=== PATIENT | male | born 1945 | race Caucasian/White ===

== ENCOUNTER 2019-04-25 09:25 | Day surgery (SDC) | payer MEDICARE, BC ==
[~2019-04-25 09:25] MED LIST: Glycopyrrolate 0.2 MG/ML SDV ONE; Lactated Ringers 1,000 ML IV SCH; Lidocaine 2% 5 ML SDV ONE; Midazolam 1 MG/ML 2 ML SDV ONE; Propofol 200 MG/20 ML SDV ONE; Sodium Chloride 0.9% 10 ML SDV IV PRN; Sodium Chloride 0.9% 10 ML Syringe FLUSH PRN; Sodium Chloride 0.9% 2.5 ML Syringe FLUSH PRN
--- NOTE | 2019-04-25 10:36 | PCM.PREANE ---
Preanesthetic Assessment - Anesthesia/Transfusion/Family Hx Anesthesia History: Prior Anesthesia Without Reaction Other Type of Anesthesia Reaction Comment: was slow to wake up after EGD Family History of Anesthesia Reaction: No Transfusion History: No Prior Transfusion(s) Intubation History: Unknown - Review of Systems General: No Symptoms Pulmonary: No Symptoms Cardiovascular: No Symptoms Gastrointestinal: Other (changes in bowel habits and 'black stools') Neurological: No Symptoms Other: Reports: None - Physical Assessment Height: 5 ft 6 in Weight: 67.132 kg Thyro-Mental Finger Breadths: 3 Mouth Opening Finger Breadths: 3 ROM/Head Extension: Full Lungs: Clear to Auscultation, Normal Respiratory Effort Cardiovascular: Regular Rate, Regular Rhythm - Lab Values: Laboratory Last Values POC Glucose 124 mg/dL (60-110) H 04/25/19 10:04 - Allergies Allergies/Adverse Reactions: Allergies Allergy/AdvReac Type Severity Reaction Status Date / Time No Known Allergies Allergy Verified 04/19/19 16:57 - Blood Blood Available: No - Anesthesia Plan Pre-Op Medication Ordered: None - Acknowledgements Anesthesia Type Planned: MAC Pt an Appropriate Candidate for the Planned Anesthesia: Yes Alternatives and Risks of Anesthesia Discussed w Pt/Guardian: Yes Pt/Guardian Understands and Agrees with Anesthesia Plan: Yes PreAnesthesia Questionnaire HEENT History: Reports: Cataract, Hard of Hearing Other HEENT History: wears glasses, has bilateral heariing aides Cardiovascular History: Reports: CAD, High Cholesterol, Hypertension, Stents ( x3 removed during tripple CABG 5 years ago) Respiratory History: Reports: Other (See Below) Other Respiratory History: was told by one doctor that he had COPD, was told after that that he did not- no inhalers Gastrointestinal History: Reports: GERD, Hiatal Hernia Musculoskeletal History: Reports: Arthritis, Gout Neurological History: Psychiatric History: Reports: Anxiety, Depression Endocrine/Metabolic History: Reports: Diabetes, Type II Hematologic History: Reports: Anemia Immunologic History: Reports: Other (See Below) Other Immunologic History: hx of West Nile Virus Oncologic (Cancer) History: Reports: Lymphoma Other Oncologic History: 10 years ago, received Chemotherapy - now ok Dermatologic History: Reports: Other (See Below) Other Dermatologic History: "scaley patches" on his head - Past Surgical History Head Surgeries/Procedures: Reports: None Cardiovascular Surgical History: Reports: Coronary Artery Bypass Other Cardiovascular Surgeries/Procedures: had cardiac stent placement prior to CABG GI Surgical History: Reports: Colonoscopy (5 years ago), EGD (with dilatation 4- 5 years ago) - SUBSTANCE USE Smoking Status *Q: Former Smoker (quit 18-20 years ago) Tobacco Use Within Last Twelve Months: No Recreational Drug Use History: No - HOME MEDS Home Medications: Home Meds Aspirin 81 mg PO BRK 11/20/14 [History] Enalapril Maleate 10 mg PO BID 11/20/14 [History] FLUoxetine HCl [Fluoxetine HCl] 80 mg PO DAILY 11/20/14 [History] Metoprolol Succinate [Toprol XL] 100 mg PO DAILY 11/20/14 [History] Omeprazole 20 mg PO BIDAC 11/20/14 [History] Rosuvastatin [Crestor] 40 mg PO DAILY 11/20/14 [History] Tamsulosin [Tamsulosin 24 Hr] 0.4 mg PO DAILY 11/20/14 [History] Venlafaxine [Effexor XR 24 Hr] 75 mg PO DAILY 11/20/14 [History] amLODIPine Besylate [Amlodipine Besylate] 10 mg PO DAILY 11/20/14 [History] metFORMIN [Glucophage] 500 mg PO BIDMEALS 11/20/14 [History] traZODone 100 mg PO BEDTIME PRN 11/20/14 [History] Ascorbate Calcium [Vitamin C] 500 mg PO DAILY 04/19/19 [History] Ferrous Sulfate 325 mg PO DAILY 04/19/19 [History] Nitroglycerin 0.4 mg SL ASDIRECTED PRN 04/19/19 [History] L.acidoph,Paracasei, B.lactis [Probiotic] 1 tab PO DAILY 04/22/19 [History] - CURRENT (IN HOUSE) MEDS Current Meds: Current Medications Lactated Ringer's (Ringers, Lactated) 1,000 mls @ 125 mls/hr IV ASDIRECTED TESS Sodium Chloride (Saline Flush) 10 ml FLUSH ASDIRECTED PRN PRN Reason: Keep Vein Open Sodium Chloride (Saline Flush) 2.5 ml FLUSH ASDIRECTED PRN PRN Reason: Keep Vein Open Sodium Chloride (Saline Flush) 10 ml FLUSH ASDIRECTED PRN PRN Reason: Keep Vein Open Sodium Chloride (Saline Flush) 2.5 ml FLUSH ASDIRECTED PRN PRN Reason: Keep Vein Open Sodium Chloride (Normal Saline) 10 ml IV ASDIRECTED PRN PRN Reason: IV Use Discontinued Medications Glycopyrrolate (Robinul) Confirm Administered Dose 0.2 mg .ROUTE .STK-MED ONE Stop: 04/25/19 07:18 Lidocaine (Xylocaine-Mpf 2%) Confirm Administered Dose 5 ml .ROUTE .STK-MED ONE Stop: 04/25/19 07:18 Midazolam HCl (Versed 1 Mg/Ml) Confirm Administered Dose 2 mg .ROUTE .STK-MED ONE Stop: 04/25/19 07:17 Propofol (Diprivan 20 Ml) Confirm Administered Dose 400 mg .ROUTE .STK-MED ONE Stop: 04/25/19 07:17
[2019-04-25] MEDS ORDERED: Propofol 200 MG/20 ML SDV ONE ×2 (12:04→13:00)
[2019-04-25] MEDS ORDERED: Midazolam 1 MG/ML 2 ML SDV ONE (12:04)
--- NOTE | 2019-04-25 13:27 | PCM.OPNOTE ---
- General Post-Op/Procedure Note Date of Surgery/Procedure: 04/25/19 Operative Procedure(s): Diagnostic EGD and colonoscopy Findings: 1) Hiatal hernia 2) Ascending colon polyp 3) Trasnverse colon polyps x 9. Biopsies taken of colon polyp #3 and #4 due to sessile nature couldnt remove. Area inked. This spot was at 50 cm 4) descending colon polyp 5) sigmoid colon polyp x 4 Pre Op Diagnosis: Dysphagia, history of colon polyp s Post-Op Diagnosis: 1) Hiatal hernia. 2) Ascending colon polyp. 3) Transverse colon polyp. 4) Sigmoid colon polyp. 5) Descending colon polyp Anesthesia Technique: MAC Primary Surgeon: Sarina Lloyd Condition: Good
--- NOTE | 2019-04-25 13:45 | PCM.POSTAN ---
POST ANESTHESIA ASSESSMENT - MENTAL STATUS Mental Status: Alert, Oriented - VITAL SIGNS Vital Signs: Last Vital Signs Temp 36.0 C 04/25/19 09:05 Pulse 56 L 04/25/19 13:40 Resp 12 04/25/19 13:40 BP 115/43 L 04/25/19 13:40 Pulse Ox 95 04/25/19 13:40 - RESPIRATORY Respiratory Status: Respiratory Rate WNL, Airway Patent, O2 Saturation Stable - CARDIOVASCULAR CV Status: Pulse Rate WNL, Blood Pressure Stable - GASTROINTESTINAL GI Status: No Symptoms - PAIN Pain Score: 0 - POST OP HYDRATION Hydration Status: Adequate & Stable - OBSERVATIONS Free Text/Narrative:: No anesthesia problems
--- NOTE | 2019-04-25 14:40 | PCM48HPAN ---
Post Anesthesia Note - EVALUATION WITHIN 48HRS OF ANESTHETIC Vital Signs in Normal Range: Yes Patient Participated in Evaluation: Yes Respiratory Function Stable: Yes Airway Patent: Yes Cardiovascular Function Stable: Yes Hydration Status Stable: Yes Pain Control Satisfactory: Yes Nausea and Vomiting Control Satisfactory: Yes Mental Status Recovered: Yes Vital Signs: Last Vital Signs Temp 36.0 C 04/25/19 09:05 Pulse 52 L 04/25/19 13:45 Resp 10 L 04/25/19 13:45 BP 122/48 L 04/25/19 13:45 Pulse Ox 96 04/25/19 13:45 - COMMENTS/OBSERVATIONS Free Text/Narrative:: No anesthesia problems
[2019-04-25 15:08] VITALS: BP 147/109; PULSE 55
--- NOTE | 2019-04-26 01:03 | OR ---
SURGEON: SARINA LLOYD MD DATE OF PROCEDURE: 04/25/2019 PREOPERATIVE DIAGNOSES: 1. Dysphagia. 2. History of colon polyps. POSTOPERATIVE DIAGNOSES: 1. Hiatal hernia. 2. Ascending colon polyp x1. 3. Transverse colon polyps x9. 4. Descending colon polyp x1. 5. Sigmoid colon polyps x4. PROCEDURE PERFORMED: Diagnostic esophagogastroduodenoscopy and colonoscopy. PRIMARY SURGEON: Sarina Lloyd M.D. ANESTHESIA: MAC. INSTRUMENT USED: Olympus endoscope, colonoscope. EXTENT OF EXAM: To the second portion of duodenum, to the cecum. PREPARATION: Good. LIMITATIONS: None. INDICATIONS FOR EXAMINATION: The patient is a 73-year-old male, who presents with dysphagia and GERD symptoms. He also is overdue for a colonoscopy. He thinks he may have had colon polyps in the past, but he cannot be sure. The decision was made to proceed with a diagnostic EGD and colonoscopy. I explained the procedure, expected perioperative course, and risks including bleeding, infection, or damage to surrounding structures including perforation. The patient verbalized understanding and wishes to proceed. PROCEDURE IN DETAIL: The patient was brought into the endoscopy suite and placed in a left lateral decubitus position. A time-out was completed verifying the patient's name, age, date of , allergies, and procedure to be performed. A bite block was placed to the patient's mouth. Monitored anesthesia care was induced and continuous oxygen was provided via nasal cannula throughout the procedure. After adequate sedation was achieved, a well-lubricated endoscope was placed in the patient's mouth and advanced under direct visualization to the second portion of duodenum. This appeared normal and a photograph was taken. The scope was then straightened out and fully withdrawn while examining the color, texture, anatomy, and integrity of the mucosa of the upper GI tract. The patient's duodenum appeared normal. The scope was brought into the stomach and a photograph was taken of the pylorus as well as the GE junction. The patient clearly had a small hiatal hernia. Biopsies were taken of the gastric antrum, body, and fundus, and sent for histologic review and H. pylori testing. There was no evidence of gross inflammation or ulceration. The scope was then brought into the distal esophagus, and a photograph was taken of the GE junction and the hiatal hernia sac. The distal esophageal mucosa showed no evidence of inflammation, but a biopsy of this was taken using a cold biopsy forceps. The remainder of the esophagus was normal, and the scope was removed. A digital rectal exam was performed. This exam was within normal limits. A well- lubricated colonoscope was inserted in the rectum and advanced under direct visualization to the cecum. The cecum was identified by both visual and anatomic landmarks, and a photograph was taken of the cecal cap. The scope was fully withdrawn while examining the color, texture, anatomy, and integrity of the mucosa of the colon. The patient was found to have 1 sessile ascending colon polyp, which was removed in piecemeal fashion and sent to Pathology. The patient had multiple polyps throughout his transverse colon. I removed polyps #1, #2, #5, #6, #7, #8, and #9 in piecemeal fashion using a cold biopsy forceps or using a wire loop both with and without heat. Colon polyps #3 and #4 were sessile and too large to remove safely. Biopsies of these were taken and labeled as transverse colon polyps #3 and #4. The area where these were, were inked for identification later. There was another polyp in the descending colon, which was removed using a cold biopsy forceps. There were 4 sigmoid colon polyps that were all removed in piecemeal fashion using a cold biopsy forceps. The scope was then brought into the rectum and retroflexed to allow visualization of the anal canal opening. This appeared normal and a photograph was taken. The scope was straightened out and fully withdrawn. The cecum-to- anus time was 45 minutes. The patient tolerated the procedure well and was transferred to the PACU in stable condition. ENDOSCOPIC DIAGNOSES: 1. Hiatal hernia. 2. Ascending colon polyp x1. 3. Transverse colon polyps x9. 4. Descending colon polyp x1. 5. Sigmoid colon polyps x4. RECOMMENDATIONS: The patient and I will visit about his biopsy results in clinic in 2 weeks. Likely, he will need to be referred to a colorectal surgeon for removal of the transverse colon polyp I was unable to take out today. CHANTEL ALEXANDRE /[id number]
== END 2019-04-25 14:52 | disposition home or self-care (01) ==
LOC: MW.SDS 09:25
PROVIDERS: ATTEND Surgery
DX: D12.2 Benign neoplasm of ascending colon (principal); D12.3 Benign neoplasm of transverse colon; D12.4 Benign neoplasm of descending colon; D12.5 Benign neoplasm of sigmoid colon; K21.0 Gastro-esophageal reflux disease with esophagitis; K29.50 Unspecified chronic gastritis without bleeding; I10 Essential (primary) hypertension; E11.9 Type 2 diabetes mellitus without complications; E78.5 Hyperlipidemia, unspecified; D64.9 Anemia, unspecified; F41.9 Anxiety disorder, unspecified; I25.10 Atherosclerotic heart disease of native coronary artery without angina pectoris; F32.9 Major depressive disorder, single episode, unspecified; M19.90 Unspecified osteoarthritis, unspecified site; Z87.891 Personal history of nicotine dependence; Z79.82 Long term (current) use of aspirin; Z79.84 Long term (current) use of oral hypoglycemic drugs; Z79.899 Other long term (current) drug therapy; Z80.0 Family history of malignant neoplasm of digestive organs; Z95.1 Presence of aortocoronary bypass graft
CPT/HCPCS: 43239; 45380; 82962; J2001; J2250; J2704; J3490; J7120; 00813

== ENCOUNTER 2022-09-29 11:17 | Emergency (ER) | payer MEDICARE, BC ==
[2022-09-29] MEDS ORDERED: hydrALAZINE 20 MG/ML SDV IVPUSH ONE ×2 (11:40→12:25)
[2022-09-29 12:02] LABS: BASOPHILS PERCENT AUTO 0.3 % (0.0-1.5); EOSINOPHILS ABSOLUTE AUTO 0.1 K/uL (0.0-0.7); EOSINOPHILS PERCENT AUTO 1.6 % (0.0-7.0); HEMATOCRIT 39.3 % (38.0-50.0); HEMOGLOBIN 13.4 g/dL (13.0-17.0); LYMPHOCYTES ABSOLUTE AUTO 1.4 K/uL (0.6-2.4); LYMPHOCYTES PERCENT AUTO 21.2 % (16.0-40.0); MEAN CORPUSCULAR HEMOGLOBIN 32.1 pg (27.0-32.0); MEAN CORPUSCULAR HGB CONC 34.1 g/dL (31.0-37.0); MONOCYTES ABSOLUTE AUTO 0.5 K/uL (0.0-0.8); NEUTROPHILS ABSOLUTE AUTO 4.7 K/uL (1.4-5.7); NEUTROPHILS PERCENT AUTO 69.9 % (48.0-80.0); PLATELET COUNT,PLT 127 K/uL (150-400); RED BLOOD CELL COUNT 4.18 M/uL (4.50-5.90); WHITE BLOOD CELL COUNT,WBC 6.74 K/uL (4.0-11.0)
[2022-09-29 12:28] LABS: CREATININE 1.7 mg/dL (0.8-1.3); EST CRCL DRUG DOSING (CG) 33.25 mL/min; POTASSIUM,K 3.6 mmol/L (3.5-5.1)
[2022-09-29 14:03] VITALS: BP 109/50; PULSE 55
== END 2022-09-29 14:00 | disposition home or self-care (01) ==
LOC: MW.ED 11:17
DX: I16.0 Hypertensive urgency (principal); G47.8 Other sleep disorders; I25.10 Atherosclerotic heart disease of native coronary artery without angina pectoris; I10 Essential (primary) hypertension; E78.00 Pure hypercholesterolemia, unspecified; K21.9 Gastro-esophageal reflux disease without esophagitis; M10.9 Gout, unspecified; E11.9 Type 2 diabetes mellitus without complications; Z79.899 Other long term (current) drug therapy; Z79.84 Long term (current) use of oral hypoglycemic drugs; Z79.82 Long term (current) use of aspirin
CPT/HCPCS: 36415; 80048; 84484; 85025; 93005; 96374; 99283; J0360

== ENCOUNTER 2022-10-01 18:07 | Emergency (ER) | payer MEDICARE, BC ==
[2022-10-01] MEDS ORDERED: ALPRAZolam 0.25 MG Tab PO STA (21:28)
[2022-10-01 22:05] VITALS: BP 218/90; PULSE 63
== END 2022-10-01 22:04 | disposition home or self-care (01) ==
LOC: MW.ED 18:07
DX: F41.9 Anxiety disorder, unspecified (principal); G47.9 Sleep disorder, unspecified; Z76.0 Encounter for issue of repeat prescription; I25.10 Atherosclerotic heart disease of native coronary artery without angina pectoris; E78.00 Pure hypercholesterolemia, unspecified; I10 Essential (primary) hypertension; J44.9 Chronic obstructive pulmonary disease, unspecified; E11.9 Type 2 diabetes mellitus without complications; Z95.5 Presence of coronary angioplasty implant and graft; Z79.82 Long term (current) use of aspirin; Z79.899 Other long term (current) drug therapy; Z79.84 Long term (current) use of oral hypoglycemic drugs
CPT/HCPCS: 99283; A9270

== ENCOUNTER 2023-12-24 18:51 | Emergency (ER) | payer MEDICARE, BC ==
[2023-12-24 19:36] VITALS: BP 152/62; PULSE 94
[2023-12-24] MEDS ORDERED: Ondansetron 4 MG/2 ML SDV IVPUSH ONE (19:56)
[2023-12-24] MEDS ORDERED: Sodium Chloride 0.9% 1,000 ML IV ONE (19:56)
[2023-12-24 20:01] LABS: APPEARANCE,URINE SLT CLOUDY; BILIRUBIN,URINE NEGATIVE (NEGATIVE); GLUCOSE,URINE NEGATIVE (NEGATIVE); KETONES,URINE TRACE mg/dL (NEGATIVE); LEUKOCYTE ESTERASE,URINE NEGATIVE (NEGATIVE); NITRITE,URINE NEGATIVE (NEGATIVE); OCCULT BLOOD,URINE SMALL (NEGATIVE); PH,URINE 5.5 (5.0-8.0); PROTEIN,URINE 100 mg/dL (NEGATIVE); UROBILINOGEN,URINE 0.2 EU/dL (<2.0)
[2023-12-24 20:06] LABS: COLOR,URINE DARK YELLOW
[2023-12-24 20:10] LABS: AMORPHOUS SEDIMENT,URINE MANY (NEGATIVE); BACTERIA,URINE FEW (NEGATIVE); EPITHELIAL CELLS,URINE RARE (NONE-FEW); HYALINE CASTS,URINE 0-2 (0-2/LPF); RBC,URINE 0-2 (0-2/HPF); WBC,URINE 0-1 (0-5/HPF)
== END 2023-12-24 20:07 | disposition left against medical advice (07) ==
LOC: MW.ED 18:51
DX: R11.2 Nausea with vomiting, unspecified (principal); Z75.8 Other problems related to medical facilities and other health care; E78.00 Pure hypercholesterolemia, unspecified; I25.10 Atherosclerotic heart disease of native coronary artery without angina pectoris; I10 Essential (primary) hypertension; E11.9 Type 2 diabetes mellitus without complications; M19.90 Unspecified osteoarthritis, unspecified site; K21.9 Gastro-esophageal reflux disease without esophagitis; Z79.899 Other long term (current) drug therapy; Z79.82 Long term (current) use of aspirin; Z79.84 Long term (current) use of oral hypoglycemic drugs
CPT/HCPCS: 81001; 99284

== ENCOUNTER 2023-12-28 12:39 | Emergency (ER) | payer MEDICARE, BC ==
[2023-12-28] MEDS ORDERED: Sodium Chloride 0.9% 10 ML Syringe FLUSH PRN ×2 (13:00→13:11)
[2023-12-28] MEDS ORDERED: Sodium Chloride 0.9% 2.5 ML Syringe FLUSH PRN ×2 (13:00→13:11)
[2023-12-28] MEDS: Ondansetron 4 MG/2 ML SDV IVPUSH STA (13:28)
[2023-12-28] MEDS: Sodium Chloride 0.9% 1,000 ML IV STA (13:29)
[2023-12-28 13:59] LABS: HEMATOCRIT 36.5 % (42.0-52.0); HEMOGLOBIN 12.4 g/dL (14.0-18.0); MEAN CORPUSCULAR HEMOGLOBIN 29.9 pg (28.0-32.0); MEAN PLATELET VOLUME 10.1 fL (9.4-12.4); PLATELET COUNT,PLT 145 K/uL (150-400); RED BLOOD CELL COUNT 4.15 M/uL (4.52-5.90); WHITE BLOOD CELL COUNT,WBC 5.72 K/uL (3.9-11.3)
[2023-12-28 14:12] LABS: A/G RATIO 0.8 (0.9-1.6); ALBUMIN 3.5 g/dL (3.4-5.0); BILIRUBIN TOTAL 0.6 mg/dL (0.2-1.0); CALCIUM 8.9 mg/dL (8.5-10.1); CARBON DIOXIDE,CO2 23.1 mmol/L (21.0-32.0); CREATININE 2.3 mg/dL (0.8-1.3); EST CRCL DRUG DOSING (CG) 24.27 mL/min; PROTEIN TOTAL,TP 7.9 g/dL (6.4-8.2)
[2023-12-28 14:31] LABS: CORONAVIRUS COVID-19 NAA NEGATIVE (NEGATIVE); INFLUENZA A NAA NEGATIVE (NEGATIVE); INFLUENZA B NAA NEGATIVE (NEGATIVE)
[2023-12-28 14:33] LABS: BAND ABSOLUTE MAN 1.43; BAND PERCENT MAN 25 %; BASOPHILS ABSOLUTE MAN 0.06 K/uL (0.00-0.20); BASOPHILS PERCENT MAN 1 % (0-1); LYMPHOCYTES ABSOLUTE MAN 0.86 K/uL (1.00-4.80); LYMPHOCYTES PERCENT MAN 15 % (24-44); METAMYELOCYTE ABSOLUTE MAN 0.29; METAMYELOCYTE PERCENT MAN 5 %; MONOCYTES ABSOLUTE MAN 1.03 K/uL (0.00-0.80); MONOCYTES PERCENT MAN 18 % (0-8); SEG NEUTROPHILS ABSOLUTE MAN 2.06 K/uL (1.80-7.70); SEG NEUTROPHILS PERCENT MAN 36 % (41-71)
[2023-12-28 14:34] LABS: BILIRUBIN,URINE NEGATIVE (NEGATIVE); COLOR,URINE YELLOW; GLUCOSE,URINE NEGATIVE (NEGATIVE); KETONES,URINE NEGATIVE (NEGATIVE); LEUKOCYTE ESTERASE,URINE NEGATIVE (NEGATIVE); NITRITE,URINE NEGATIVE (NEGATIVE); OCCULT BLOOD,URINE TRACE-INTACT (NEGATIVE); PROTEIN,URINE 30 mg/dL (NEGATIVE); UROBILINOGEN,URINE 0.2 EU/dL (<2.0)
[2023-12-28 14:58] LABS: APPEARANCE,URINE SLT CLOUDY
[2023-12-28 15:04] LABS: BACTERIA,URINE FEW (NEGATIVE); EPITHELIAL CELLS,URINE RARE (NONE-FEW); RBC,URINE 0-1 (0-2/HPF); URIC ACID CRYSTALS,URINE FEW (NEGATIVE); WBC,URINE 0-1 (0-5/HPF)
[2023-12-28 15:05] LABS: AMORPHOUS SEDIMENT,URINE FEW (NEGATIVE)
[2023-12-28] MEDS: Sodium Chloride 0.9% 1,000 ML IV ONE (15:08)
[2023-12-28 15:51] LABS: PRO B-TYPE NATRIUR PEPT,BNPPRO 284 pg/mL (0-450)
[2023-12-28] MEDS: Iopamidol 755 MG/ML 500 ML Multipack Bottle IVPUSH STA (16:51)
[2023-12-28 18:38] VITALS: BP 135/58; PULSE 98
== END 2023-12-28 18:39 | disposition home or self-care (01) ==
LOC: MW.ED 12:39
DX: K52.9 Noninfective gastroenteritis and colitis, unspecified (principal); J43.9 Emphysema, unspecified; Z75.8 Other problems related to medical facilities and other health care; I25.10 Atherosclerotic heart disease of native coronary artery without angina pectoris; I10 Essential (primary) hypertension; E78.00 Pure hypercholesterolemia, unspecified; E11.9 Type 2 diabetes mellitus without complications; Z79.899 Other long term (current) drug therapy; Z79.84 Long term (current) use of oral hypoglycemic drugs; Z79.82 Long term (current) use of aspirin
CPT/HCPCS: 0240U; 36415; 71045; 71275; 74177; 80053; 81001; 83690; 83880; 84484; 85025; 85379; 96361; 96374; 99284; J2405; J7030; Q9967

== ENCOUNTER 2024-02-29 08:14 | Day surgery (SDC) | payer MEDICARE, BC ==
[2024-02-29] MEDS: Lactated Ringers 1,000 ML IV SCH (08:51)
[2024-02-29] MEDS ORDERED: propofoL 50 ML ONE (09:08)
[2024-02-29 12:45] VITALS: BP 184/81; PULSE 53
== END 2024-02-29 10:35 | disposition home or self-care (01) ==
LOC: MW.SDS 08:14
PROVIDERS: ATTEND Surgery
DX: Z12.11 Encounter for screening for malignant neoplasm of colon (principal); D12.5 Benign neoplasm of sigmoid colon; E11.9 Type 2 diabetes mellitus without complications; I10 Essential (primary) hypertension; I25.10 Atherosclerotic heart disease of native coronary artery without angina pectoris; D64.9 Anemia, unspecified; E78.00 Pure hypercholesterolemia, unspecified; Z79.82 Long term (current) use of aspirin; Z79.899 Other long term (current) drug therapy; Z79.84 Long term (current) use of oral hypoglycemic drugs; Z87.891 Personal history of nicotine dependence; Z86.0100 Personal history of colon polyps, unspecified
CPT/HCPCS: 45380; J2704; J7120; 00811; 88305; 99100

== ENCOUNTER 2024-06-21 13:41 | Inpatient (IN) | payer MEDICARE, BC ==
[2024-06-21 14:41] LABS: HEMATOCRIT 33.8 % (42.0-52.0); HEMOGLOBIN 11.3 g/dL (14.0-18.0); MEAN CORPUSCULAR HEMOGLOBIN 32.1 pg (28.0-32.0); MEAN CORPUSCULAR HGB CONC 33.4 g/dL (32.0-36.0); PLATELET COUNT,PLT 140 K/uL (150-400); RED BLOOD CELL COUNT 3.52 M/uL (4.52-5.90); WHITE BLOOD CELL COUNT,WBC 11.27 K/uL (3.9-11.3)
[2024-06-21 14:54] LABS: INR 1.12 (0.86-1.11)
[2024-06-21 15:18] LABS: A/G RATIO 1.1 (0.9-1.6); ALBUMIN 3.7 g/dL (3.4-5.0); BILIRUBIN TOTAL 1.2 mg/dL (0.2-1.0); CALCIUM 9.2 mg/dL (8.5-10.1); CARBON DIOXIDE,CO2 25.3 mmol/L (21.0-32.0); CREATININE 2.5 mg/dL (0.8-1.3); EST CRCL DRUG DOSING (CG) 21.98 mL/min; MAGNESIUM 1.2 mg/dL (1.8-2.4); POTASSIUM,K 4.4 mmol/L (3.5-5.1); PROTEIN TOTAL,TP 7.1 g/dL (6.4-8.2)
[2024-06-21 15:25] LABS: BAND ABSOLUTE MAN 0.79; BAND PERCENT MAN 7 %; LYMPHOCYTES ABSOLUTE MAN 0.79 K/uL (1.00-4.80); LYMPHOCYTES PERCENT MAN 7 % (24-44); SEG NEUTROPHILS ABSOLUTE MAN 9.02 K/uL (1.80-7.70); SEG NEUTROPHILS PERCENT MAN 80 % (41-71)
[2024-06-21 15:26] LABS: MONOCYTES ABSOLUTE MAN 0.68 K/uL (0.00-0.80); MONOCYTES PERCENT MAN 6 % (0-8)
[2024-06-21] MEDS: Magnesium Sulf/Wat 2 GM/50 mL 2 GM in Premix Bag 1 BAG IV ONE (16:18)
[2024-06-21] MEDS: Furosemide 40 MG/4 ML VIAL IVPUSH ONE (16:18)
[2024-06-22] MEDS ORDERED: Glucagon,Human Recombinant 1 MG Vial IM PRN (00:53)
[2024-06-22] MEDS ORDERED: 50% Dextrose in Water 50 ML Syringe IVPUSH PRN (00:53)
[2024-06-22] MEDS: amLODIPine 2.5 MG Tab PO ONE (01:30)
[2024-06-22 06:46] LABS: HEMOGLOBIN 10.2 g/dL (14.0-18.0); MEAN CORPUSCULAR HEMOGLOBIN 32.6 pg (28.0-32.0); MEAN CORPUSCULAR VOLUME 95.8 fL (83.0-99.0); MEAN PLATELET VOLUME 10.1 fL (9.4-12.4); PLATELET COUNT,PLT 145 K/uL (150-400); RED BLOOD CELL COUNT 3.13 M/uL (4.52-5.90); WHITE BLOOD CELL COUNT,WBC 11.29 K/uL (3.9-11.3)
[2024-06-22 06:58] LABS: CALCIUM 9.2 mg/dL (8.5-10.1); CARBON DIOXIDE,CO2 27.6 mmol/L (21.0-32.0); CREATININE 2.5 mg/dL (0.8-1.3); EST CRCL DRUG DOSING (CG) 21.98 mL/min; POTASSIUM,K 3.8 mmol/L (3.5-5.1)
[2024-06-22 07:23] LABS: BAND ABSOLUTE MAN 1.92; BAND PERCENT MAN 17 %; EOSINOPHILS ABSOLUTE MAN 0.11 K/uL (0.00-0.45); EOSINOPHILS PERCENT MAN 1 % (0-6); LYMPHOCYTES ABSOLUTE MAN 1.02 K/uL (1.00-4.80); LYMPHOCYTES PERCENT MAN 9 % (24-44); MONOCYTES ABSOLUTE MAN 0.45 K/uL (0.00-0.80); MONOCYTES PERCENT MAN 4 % (0-8); SEG NEUTROPHILS ABSOLUTE MAN 7.79 K/uL (1.80-7.70); SEG NEUTROPHILS PERCENT MAN 69 % (41-71)
[2024-06-22] MEDS: Insulin Aspart 100 Units/ML 3 ML Pen SUBCUT SCH (07:54)
[2024-06-22] MEDS: Metoprolol Succinate 100 MG Tab.ER PO SCH (16:31)
[2024-06-22] MEDS: Clopidogrel 75 MG Tab PO SCH (16:34)
[2024-06-22] MEDS: Rosuvastatin 10 MG Tab PO SCH (21:23)
[2024-06-22] MEDS ORDERED: traZODone 50 MG Tab PO PRN (23:45)
[2024-06-23 06:49] LABS: BASOPHILS ABSOLUTE AUTO 0.02 K/uL (0.00-0.20); BASOPHILS PERCENT AUTO 0.2 % (0.0-1.0); EOSINOPHILS ABSOLUTE AUTO 0.14 K/uL (0.00-0.45); EOSINOPHILS PERCENT AUTO 1.4 % (0.0-6.0); HEMOGLOBIN 10.3 g/dL (14.0-18.0); IMMATURE GRAN ABSOLUTE AUTO 0.04 K/uL (0.00-0.05); IMMATURE GRAN PERCENT AUTO 0.4 % (0.0-0.4); LYMPHOCYTES ABSOLUTE AUTO 0.91 K/uL (1.00-4.80); LYMPHOCYTES PERCENT AUTO 9.3 % (24.0-44.0); MEAN CORPUSCULAR HEMOGLOBIN 32.9 pg (28.0-32.0); MEAN CORPUSCULAR HGB CONC 34.3 g/dL (32.0-36.0); MEAN CORPUSCULAR VOLUME 95.8 fL (83.0-99.0); MEAN PLATELET VOLUME 10.5 fL (9.4-12.4); MONOCYTES ABSOLUTE AUTO 0.73 K/uL (0.00-0.80); MONOCYTES PERCENT AUTO 7.4 % (0.0-8.0); NEUTROPHILS ABSOLUTE AUTO 7.99 K/uL (1.80-7.70); NEUTROPHILS PERCENT AUTO 81.3 % (41.0-71.0); PLATELET COUNT,PLT 140 K/uL (150-400); RED BLOOD CELL COUNT 3.13 M/uL (4.52-5.90); WHITE BLOOD CELL COUNT,WBC 9.83 K/uL (3.9-11.3)
[2024-06-23 07:04] LABS: CALCIUM 9.4 mg/dL (8.5-10.1); CARBON DIOXIDE,CO2 26.4 mmol/L (21.0-32.0); EST CRCL DRUG DOSING (CG) 27.47 mL/min; POTASSIUM,K 4.1 mmol/L (3.5-5.1)
[2024-06-23] MEDS: amLODIPine 5 MG Tab PO SCH (08:02)
[2024-06-23] MEDS: Tamsulosin 0.4 MG Cap.ER PO SCH (08:02)
[2024-06-23] MEDS: Aspirin 81 MG Tab.Chew PO SCH (08:02)
[2024-06-23 11:50] VITALS: BP 125/60; PULSE 67
== END 2024-06-23 12:40 | disposition home or self-care (01) | DRG 292 ==
LOC: MW.ED 13:41 → MW.MS 16:56
PROVIDERS: ADMIT Internal Medicine; ATTEND Internal Medicine
DX: I13.0 Hypertensive heart and chronic kidney disease with heart failure and stage 1 through stage 4 chronic kidney disease, or unspecified chronic kidney disease (principal); G45.9 Transient cerebral ischemic attack, unspecified; I11.0 Hypertensive heart disease with heart failure; H26.9 Unspecified cataract; H91.90 Unspecified hearing loss, unspecified ear; I50.9 Heart failure, unspecified; N18.9 Chronic kidney disease, unspecified; Z66 Do not resuscitate; R09.02 Hypoxemia; K21.9 Gastro-esophageal reflux disease without esophagitis; K44.9 Diaphragmatic hernia without obstruction or gangrene; N40.0 Benign prostatic hyperplasia without lower urinary tract symptoms; M19.90 Unspecified osteoarthritis, unspecified site; E11.22 Type 2 diabetes mellitus with diabetic chronic kidney disease; M10.9 Gout, unspecified; F41.9 Anxiety disorder, unspecified; F32.A Depression, unspecified; D64.9 Anemia, unspecified; I25.10 Atherosclerotic heart disease of native coronary artery without angina pectoris; Z95.5 Presence of coronary angioplasty implant and graft; Z87.442 Personal history of urinary calculi; E78.00 Pure hypercholesterolemia, unspecified; E11.9 Type 2 diabetes mellitus without complications; Z79.82 Long term (current) use of aspirin; Z79.899 Other long term (current) drug therapy
CPT/HCPCS: 36415; 70450; 71045; 80053; 83690; 83735; 83880; 84484 ×2; 85025; 85610; 87428; 93005 ×2; J1940; J3475; 71250; 71250-26; 80048; 82947; 93010; 96365; 96375; 99222; 99238; 99285; 99285-25; A9270-GY; J1815-GY

== ENCOUNTER 2024-08-05 14:49 | Emergency (ER) | payer MEDICARE, BC ==
[2024-08-05] MEDS: Acetaminophen 325 MG Tab PO ONE (15:37)
[2024-08-05] MEDS: Sodium Chloride 0.9% 1,000 ML IV ONE (15:38)
[2024-08-05 16:03] LABS: BASOPHILS ABSOLUTE AUTO 0.02 K/uL (0.00-0.20); BASOPHILS PERCENT AUTO 0.3 % (0.0-1.0); EOSINOPHILS ABSOLUTE AUTO 0.11 K/uL (0.00-0.45); EOSINOPHILS PERCENT AUTO 1.8 % (0.0-6.0); HEMATOCRIT 37.2 % (42.0-52.0); HEMOGLOBIN 12.6 g/dL (14.0-18.0); IMMATURE GRAN ABSOLUTE AUTO 0.03 K/uL (0.00-0.05); IMMATURE GRAN PERCENT AUTO 0.5 % (0.0-0.4); LYMPHOCYTES ABSOLUTE AUTO 0.67 K/uL (1.00-4.80); LYMPHOCYTES PERCENT AUTO 10.7 % (24.0-44.0); MEAN CORPUSCULAR HEMOGLOBIN 31.8 pg (28.0-32.0); MEAN CORPUSCULAR HGB CONC 33.9 g/dL (32.0-36.0); MEAN CORPUSCULAR VOLUME 93.9 fL (83.0-99.0); MEAN PLATELET VOLUME 10.4 fL (9.4-12.4); MONOCYTES ABSOLUTE AUTO 0.67 K/uL (0.00-0.80); MONOCYTES PERCENT AUTO 10.7 % (0.0-8.0); NEUTROPHILS ABSOLUTE AUTO 4.76 K/uL (1.80-7.70); PLATELET COUNT,PLT 161 K/uL (150-400); RED BLOOD CELL COUNT 3.96 M/uL (4.52-5.90); WHITE BLOOD CELL COUNT,WBC 6.26 K/uL (3.9-11.3)
[2024-08-05] MEDS: diphenhydrAMINE 50 MG/ML SDV IVPUSH ONE (19:54)
[2024-08-05 21:25] VITALS: BP 138/65; PULSE 75
[2024-08-05 23:32] LABS: CALCIUM 9.7 mg/dL (8.5-10.1); CARBON DIOXIDE,CO2 23.2 mmol/L (21.0-32.0); CREATININE 2.1 mg/dL (0.8-1.3); EST CRCL DRUG DOSING (CG) 26.16 mL/min; POTASSIUM,K 3.8 mmol/L (3.5-5.1)
== END 2024-08-05 21:24 | disposition home or self-care (01) ==
LOC: MW.ED 14:49
DX: R51.9 Headache, unspecified (principal); I25.10 Atherosclerotic heart disease of native coronary artery without angina pectoris; I11.0 Hypertensive heart disease with heart failure; I50.9 Heart failure, unspecified; E78.00 Pure hypercholesterolemia, unspecified; K21.9 Gastro-esophageal reflux disease without esophagitis; M19.90 Unspecified osteoarthritis, unspecified site; E11.9 Type 2 diabetes mellitus without complications; Z95.5 Presence of coronary angioplasty implant and graft; Z79.82 Long term (current) use of aspirin; Z79.84 Long term (current) use of oral hypoglycemic drugs; Z79.899 Other long term (current) drug therapy
CPT/HCPCS: 36415; 70450; 80048; 85025; 96361; 96374; 99284; A9270; J1200; J7030; 99283